=== PATIENT | female | born 1960 | race Caucasian/White ===

== ENCOUNTER 2020-12-20 08:19 | Outpatient (CLI) | payer BC, SELFPAY ==
--- NOTE | ~2020-12-20 | MM_ITS ---
EXAMINATION: MM screening howie BI w karen HISTORY: Screening TECHNIQUE: Craniocaudal and mediolateral oblique 3-D tomosynthesis images were obtained and synthetic 2-D images were generated. CAD analysis was submitted and interpreted. COMPARISON: 04/27/2011 BREAST PARENCHYMAL COMPOSITION: There are scattered areas of fibroglandular density. FINDINGS: There is no evidence of suspicious mass, calcification, or architectural distortion to sugg est malignancy in either breast. There has been no suspicious interval change. IMPRESSION: 1. No mammographic evidence of malignancy. 2. Recommend routine screening mammography in one year. BI-RADS Category 1: Negative Reviewed, dictated and finalized at location A.
== END 2020-12-20 08:20 | disposition home or self-care (01) ==
PROVIDERS: PCP Internal Medicine; Visit Provider Internal Medicine
DX: Z12.31 Encounter for screening mammogram for malignant neoplasm of breast (principal)
CPT/HCPCS: 77063; 77067

== ENCOUNTER 2023-11-09 08:50 | Outpatient (CLI) | payer BC, SELFPAY ==
--- NOTE | ~2023-11-09 | MM_ITS ---
EXAMINATION: MM screening howie BI w karen HISTORY: Screening mammogram TECHNIQUE: Craniocaudal and mediolateral oblique 3-D tomosynthesis images were obtained and synthetic 2-D images were generated. CAD analysis was submitted and interpreted. COMPARISON: 12/20/2020 BREAST PARENCHYMAL COMPOSITION:Not Dense. The breasts are almost entirely fatty FINDINGS: There is more conspicuous low-density probable circumscribed inner left subareolar mass, mo st likely of benign lymph node. Stable lymph node of the upper, outer left breast. No other suspiciou s mass, calcification, or architectural distortion are identified in either breast to suggest maligna ncy. IMPRESSION: More conspicuous mass at the inner left subareolar region. Although likely a lymph node, spot compre ssion views, and possibly ultrasound, recommended to better assess. BI-RADS Category 0: Incomplete: Needs additional imaging evaluation. Reviewed, dictated and finalized at [facility]. IMPRESSION: More conspicuous mass at the inner left subareolar region. Although likely a l ymph node, spot compression views, and possibly ultrasound, recommended to bett er assess. BI-RADS Category 0: Incomplete: Needs additional imaging evaluation.
== END 2023-11-09 08:51 | disposition home or self-care (01) ==
LOC: ANHIMG 08:54
PROVIDERS: PCP Family Medicine; Visit Provider Family Medicine
DX: Z12.31 Encounter for screening mammogram for malignant neoplasm of breast (principal); R92.8 Other abnormal and inconclusive findings on diagnostic imaging of breast
CPT/HCPCS: 77063; 77067

== ENCOUNTER 2023-12-14 10:55 | Outpatient (CLI) | payer BC, SELFPAY ==
--- NOTE | ~2023-12-14 | MMUS_ITS ---
EXAMINATION: MM diagnostic howie LT w karen, US breast LT limited HISTORY: Follow-up left breast mass TECHNIQUE: Additional 3-D tomosynthesis images of the left breast were performed and synthetic 2-D im ages were generated. CAD analysis was submitted and interpreted. High resolution Limited left breast ultrasound was performed. COMPARISON: Comparison to multiple prior studies sequentially, with oldest reviewed study dated 11/2020. BREAST PARENCHYMAL COMPOSITION: Not dense: There are scattered areas of fibroglandular density. FINDINGS: MAMMOGRAPHIC FINDINGS: There is a radiolucent mass with microlobulated margins anteriorly in the left breast at approximatel y 9:00. There are no suspicious calcifications ULTRASOUND: Limited left breast ultrasound: At 9:00, 4 cm from the nipple, there is an oval circumscribed hyperec hoic parallel oriented 5 mm mass without posterior features or internal vascularity, likely benign. T his likely does not correspond to the mammographic finding. IMPRESSION: 1. Probable benign left breast findings. 2. Recommend 6 month follow-up Limited left breast ultrasound and diagnostic left mammogram. BI-RADS category 3, probably benign findings. Reviewed, dictated and finalized at location B. IMPRESSION: 1. Probable benign left breast findings. 2. Recommend 6 month follow-up Limited left breast ultrasound and diagnostic le ft mammogram. BI-RADS category 3, probably benign findings.
== END 2023-12-14 10:56 | disposition home or self-care (01) ==
PROVIDERS: PCP Family Medicine; Visit Provider Student in an Organized Health Care Education/Training Program
DX: R92.8 Other abnormal and inconclusive findings on diagnostic imaging of breast (principal)
CPT/HCPCS: 76642; 77061; 77065; G0279

== ENCOUNTER 2024-12-10 10:20 | Outpatient (CLI) | payer BC, SELFPAY ==
--- NOTE | ~2024-12-10 | MMUS_ITS ---
EXAMINATION: MM diagnostic howie BI w karen, US breast LT limited HISTORY: Follow-up left breast mass TECHNIQUE: Additional 3-D tomosynthesis images of the breasts were performed and synthetic 2-D images were generated. CAD analysis was submitted and interpreted. High resolution Limited left breast ultr asound was performed. COMPARISON: Comparison to multiple prior studies sequentially, with oldest reviewed study dated 11/2020. BREAST PARENCHYMAL COMPOSITION: Not Dense: The breasts are almost entirely fatty. FINDINGS: MAMMOGRAPHIC FINDINGS: The right breast is stable without evidence for malignancy. Low-density mass in the lower inner quadr ant of the left breast, anterior third, is not significantly changed. No new masses, calcifications o r architectural distortion. 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 IMPRESSION: 1. Stable benign-appearing findings of the left breast. No suspicious abnormalities in either breast to suggest malignancy. 2. Routine yearly screening mammogram and regular clinical breast examination are recommended. BI-RADS Category 2: Benign finding(s). Reviewed, dictated and finalized at location B. IMPRESSION: 1. Stable benign-appearing findings of the left breast. No suspicious abnormali ties in either breast to suggest malignancy. 2. Routine yearly screening mammogram and regular clinical breast examination a re recommended. BI-RADS Category 2: Benign finding(s).
--- OUTSIDE RECORDS SUMMARY | 2024-12-10 10:49 | XMS_ITS | Clinical Summary ---
Author Organization [facility] Address [address] [place] [address] Care Team Providers Care Crane Operator Name Role Phone Zurdo York MD Primary Care Provider Allergies No known active allergies Medications coenzyme Q10 (CO Q-10) 150 mg capsule Take according to nlii-xjb-gbtcifb package directions 0 0 9 Active multivitamin tablet tablet Take according to ymvf-xfn-hnmyyxn package directions [address] (NexIUM) 40 mg capsule Take one by mouth one time per day 0 0 7 Active simvastatin (ZOCOR) 40 mg tablet TAKE 1 TABLET BY MOUTH EVERY DAY IN THE EVENING 90 0 2 Active cholecalciferol (VITAMIN D-3) 1,000 unit Take 1 tablet/capsule (1,000 Units total) by mouth daily Active bisoprolol (ZEBETA) 10 mg tablet Take 1 tablet (10 mg total) by mouth daily 2 Active phentermine 15 mg capsule Take 1 capsule (15 mg total) by mouth every morning 90 capsule 1 4 Active Additional Information Patient not taking.Reported on 09/18/2024 tirzepatide (Mounjaro) 2.5 mg/0.5 mL pen injector injectionIndica tions:type 2 diabetes mellitus Inject 0.5 mL (2.5 mg total) under the skin every 7 days 2 mL 5 Active tirzepatide (Mounjaro) 5 mg/0.5 mL pen injector injectionIndica tions:type 2 diabetes mellitus Inject 0.5 mL (5 mg total) under the skin every 7 days 6 mL 3 5 10/17/19 26 Active metFORMIN XR (GLUCOPHAGE XR) 500 mg 24 hr tabletIndicatio ns:Type 2 diabetes mellitus with hyperglycemia, without long-term current use of insulin (HCC) Take 1 tablet (500 mg total) by mouth 2 (two) times a day before breakfast and dinner 180 tablet 3 5 09/19/19 26 Active Active Problems Problem Noted Date Diagnosed Date Type 2 diabetes mellitus wit h hyperglycemia, without long-term current use of insulin 09/18/2024 Assessment & Plan (09/18/2024 1:56 PM CDT): Chronic problem. A1c near goal but increased from 6.7% to now 7.3%. -Will increase the Metformin XR from daily to twice daily -Will start mounjaro 2.5mg weekly x 4 weeks then increase to 5mg weekly. Current medications: Metformin XR 500mg twice daily with meals Mounjaro 2.5mg weekly x 4 weeks then increase to 5mg weekly. Phentermine 15mg daily UTD on labs. DM eye exam due. Will call to schedule. Discussed with Roxie Morales: Strive for regular exercise (30min most days) and diet (get at least 4-5 servings of fruit and veggies daily, avoid processed foods, increase lean protein intake and decrease carb portions as well as fruit juices, regular soda & desserts). Watch carbs and simple sugars. Check the feet daily for skin breakdown and infection. Class 2 obesity due to exces s calories without serious comorbidity with body mass index (BMI) of 37.0 to 37.9 in adult 12/30/2022 Assessment & Plan (11/03/2023 1:37 PM CDT): Diet, exercise Continue Phentermine Assessment & Plan (04/28/2023 1:37 PM AUTO ENGINE MECHANIC): Diet and exercise Continue Phentermine Assessment & Plan (12/30/2022 9:55 AM CDT): Chronic problem. Currently taking phentermine 15mg daily. Denies any SE. Has lost 5# since MICKY. Discussed diet/activity. Discussed healthy diet and importance of regular physical activity (20- 30min/day, 150min/wk). Vitamin D deficiency 02/16/2018 Assessment & Plan (09/18/2024 1:28 PM CDT): Chronic problem. Currently taking D3 1000IU daily. Last D level=47 08/29/24 No changes at this time. Assessment & Plan (11/03/2023 1:38 PM CDT): Chronic, stable Update 25 OH vit D Assessment & Plan (12/30/2022 9:54 AM CDT): Chronic problem. Currently taking D3 1000IU daily. Reports being outside in sun during day working/playing with grandchildren. Last D level=62 08/2022. No changes at this time. Assessment & Plan (08/26/2022 12:49 PM CDT): Continue current dose of vit D Assessment & Plan (06/14/2019 1:57 PM AUTO ENGINE MECHANIC): Continue vit D supplementation Assessment & Plan (02/16/2018 1:20 PM CDT): Check 25 OH vit D Adjust dose of Ergocalciferol /vit D accordingly Postmenopausal 07/21/2017 Assessment & Plan (07/21/2017 1:12 PM AUTO ENGINE MECHANIC): Calcium and vit D intake discussed DEXA Insulin resistance 07/03/2013 Overview (08/18/2016): DYSMETABOLIC SYNDROME X Assessment & Plan (11/03/2023 1:36 PM CDT): Diet and exercise Continue Metformin Update hba1c Consider starting GLP1 Assessment & Plan (04/28/2023 1:36 PM AUTO ENGINE MECHANIC): Continue working on diet and exercise Continue Metformin Assessment & Plan (12/30/2022 9:52 AM CDT): Chronic problem. A1c 5.8% when checked 08/2022; will repeat at next appt. Denies SE from Metformin. Discussed need to increase exercise/activity. Watch carb/sugar intake. Assessment & Plan (08/26/2022 12:48 PM CDT): 30 min daily walks Low calorid low carb diet discussed Start Metformin XR 500 mg daily Pt to notify me of significant SE Assessment & Plan (02/25/2022 4:14 PM CDT): Check hba1c Diet and exercise Try Ozempic Assessment & Plan (12/13/2019 1:37 PM CDT): Diet and exercise Check hba1c Assessment & Plan (08/24/2018 12:59 PM CDT): Diet and exercise Check hba1c Assessment & Plan (07/21/2017 1:11 PM AUTO ENGINE MECHANIC): Diet and exercise discussed Check hba1c Consider Metformin Assessment & Plan (01/06/2017 12:41 PM CDT): Importance of diet and exercise as cornerstone of treatment of this condition was discussed at length 45-60 min daily aerobic / resistance exercise [id number] [place]incoln diet Check hba1c Restart Metformin Lymphocytic thyroiditis 07/03/2013 Overview (08/20/2016): CHR LYMPHOCYT THYROIDIT Assessment & Plan (09/18/2024 1:28 PM CDT): Chronic problem. Last TFTs WNL when checked 08/29/24. Assessment & Plan (11/03/2023 1:36 PM CDT): Chronic, stable Euthyroid Assessment & Plan (04/28/2023 1:36 PM AUTO ENGINE MECHANIC): Continue monitoring TFTs yearly Assessment & Plan (12/30/2022 9:53 AM CDT): Chronic problem. Last TFTs WNL when checked 08/2022. Will repeat at next appt. Reviewed red flags to watch for. Assessment & Plan (02/25/2022 4:14 PM CDT): Check TFT Treat if TSH is off Assessment & Plan (06/12/2020 3:04 PM AUTO ENGINE MECHANIC): TSH has continued to be stable No indication for treatment at this point Assessment & Plan (12/13/2019 1:37 PM CDT): Check TFT's Treat if indicated Assessment & Plan (11/30/2018 2:53 PM CDT): Normal TSH Continue monitoring yearly Assessment & Plan (08/24/2018 12:59 PM CDT): Continue monitoring TSH Assessment & Plan (02/16/2018 1:18 PM CDT): Check TFT's Start Tapazole as indicated Assessment & Plan (07/21/2017 1:13 PM AUTO ENGINE MECHANIC): With subclinical hyperthyroidism Recheck TFT's Start treatment if T4//T3 are elevated Bone effects of subclinical hyperthyroidism explained DEXA requested Ca and vit D intake also discussed Assessment & Plan (01/06/2017 12:42 PM CDT): Check TFT's Restart Tapazole as indicated. Hyperlipidemia 04/18/2012 Overview (08/20/2016): HYPERLIPIDEMIA NEC/NOS Assessment & Plan (12/13/2019 1:38 PM CDT): Check lipid Adjust dose of Pravachol as indicated Low chol diet Exercise Assessment & Plan (01/06/2017 12:41 PM CDT): Goal of treatment , LDL cholesterol less than 100 ( less than 70 in patients with history of heart attacks and / or strokes ) NonHDL cholesterol goal less than 130 ( less than 100 in patients with history of heart attacks and / or strokes ) Continue statin therapy Non-toxic multinodular goiter 10/20/2010 Overview (08/20/2016): NONTOX MULTINODUL GOITER Resolved Problems Problem Noted Date Diagnosed Date Resolved Date BMI 40.0-44.9, adult 02/16/2018 023 Assessment & Plan (06/14/2019 1:57 PM AUTO ENGINE MECHANIC): Diet and exercise were discussed. 1200 Calorie diet advised 45-60 min aerobic / resistance exercise most days of the week recommended. Continue Phentermine Assessment & Plan (02/16/2018 1:19 PM CDT): Diet and exercise were discussed. 1200 Calorie diet advised 45-60 min aerobic / resistance exercise most days of the week recommended. Bariatric surgery medically indicated, pt not interested. Morbid obesity 02/16/2018 12/30/2022 Assessment & Plan (08/26/2022 12:49 PM CDT): Diet and exercise Start Phentermine Assessment & Plan (06/12/2020 3:05 PM AUTO ENGINE MECHANIC): Patient to continue working on diet and exercise Could not been tolerant to weight loss medication Assessment & Plan (11/30/2018 2:55 PM CDT): Continue Phentermine Diet and exercise were emphasized Assessment & Plan (08/24/2018 1:00 PM CDT): Diet and exercise were discussed. 1200 Calorie diet advised 45-60 min aerobic / resistance exercise most days of the week recommended. Bariatric surgery medically indicated, pt declines Start Phentermine Encounters Date Type Department Care Team Description 09/20/2024 Telephone [facility] Diabetes and Endocrinology [address] [place] [phone] Sherry Vega NP Prior Auth (Handy) 09/18/2024 1:30 PM CDT Office Visit [facility] Diabetes and Endocrinology [address] [place] [phone] Sherry Vega, FLACA Type 2 diabetes mellitus with hyperglycemia, without long-term current use of insulin (HCC) (Primary Dx); Lymphocytic thyroiditis; Vitamin D deficiency 09/18/2024 Orders Only [facility] Diabetes [facility] Endocr[facility]ology [address] [place] [phone] Provider, MD Bebe from Last 3 Months Surgical History Surgery Date Site/Laterality Comments HERNIA REPAIR Hernia repair HYSTERECTOMY Hysterectomy Medical History Medical History Date Comments Disorder of thyroid Thyroid dise ase Hx Other Medical not claustaphoi c; Comments: PINA 11/13/2013 - Family History Medical History Relation Name Comments Diabetes type II Other Family hist ory of Diabetes -Type 2; Relation Name Status Comments Other Social History Tobacco Use Types Packs/Day Years Used Date Smoking Tobacco: Former Alcohol Use Standard Drinks/Week Comments Yes 0 (1 standard drink = 0.6 oz pur e alcohol) PHQ-2 Answer Date Recorded PHQ-2 Total Score (If total score is 3 or more points, staff should administer the PHQ-9) 0 04/28/2023 Comments Unknown Sex and Gender Information Value Date Recorded Sex Assigned at Not on file Legal Sex Female 10:10 AM AUTO ENGINE MECHANIC Gender Identity Not on file Sexual Orientation Not on file Obstetrics History Last Filed Vital Signs Vital Sign Reading Time Taken Comments Blood Pressure 132/78 09/18/2024 1:07 PM CDT Pulse 80 09/18/2024 1:07 PM CDT Temperature - - Respiratory Rate 18 09/18/2024 1:07 PM CDT Oxygen Saturation - - Inhaled Oxygen Concentration - - Weight 112 kg (247 lb) 09/18/2024 1:07 PM CDT Height 152.4 cm (5') 09/18/2024 1:07 PM CDT Body Mass Index 48.24 09/18/2024 1:07 PM CDT Plan of Treatment Health Maintenance Due Date Last Done Comments Breast Cancer Screening-Mammogram 1960 Colon Cancer Screening-Colonoscopy 1960 Hepatitis C Screening 1960 Dilated Eye Exam 1960 Hepatitis B Screening 1978 Regular Well Visit/Exam 18-64 1978 Pneumococcal vaccine <65 (1 of 2 - PCV) 1979 Zoster Vaccine (1 of 2) 1979 Depression Screening 04/28/2024 04/28/2023, 08/26/2022, 02/25/2022, Additional history exists Influenza Vaccine (#1) 2025 , 2019, 03/14/2018, Additional history exists Hemoglobin A1C 03/21/2025 09/18/2024, 08/14, 11/09/2023, Additional history exists Albumin Creatinine Ratio, Urine 08/29/2025 Lipid Panel 08/29/2025 08/29/2024, 08/14, 09/07/2023, Additional history exists eGFR 08/29/2025 08/29/2024 Foot Exam 09/18/2025 09/18/2024 DTaP/Tdap/Td Vaccine (2 - Td or Tdap) 12/27/2033 12/28/2023, 1960 Procedures Procedure Name Priority Date/Time Associated Diagnosis Comments POCT GLUCOSE Routine 09/18/2024 1:10 PM CDT Type 2 diabetes mellitus with hyperglycemia, without long-term current use of insulin (HCC) POCT HEMOGLOBIN A1C Routine 09/18/2024 1 :07 PM CDT Type 2 diabetes mellitus with hyperglycemia, without long-term current use of insulin (HCC) COMPREHENSIVE METABOLIC PANEL Routine 08/29/2024 9:11 AM CDT LIPID PANEL Routine 08/29/2024 9:11 AM CDT ALBUMIN CREATININE RATIO, URINE Routine 08/29/2024 9:11 AM CDT from Last 3 Months or Most Recently Relevant to Health Maintenance Results * (ABNORMAL) POCT glucose (09/18/2024 1:10 PM CDT) Glucose Blood, POC 131 Normal Fasting 70 - 100, Random <200 mg/dL Blood 09/18/2024 1:10 PM CDT us Sherry Vega MARINE DIESEL MECHANIC POINT OF CARE TEST ORDERA BLES Final Result * (ABNORMAL) POCT hemoglobin A1c (09/18/2024 1:07 PM CDT) Pathologist [facility] Hemoglobin A1C, POC 7.3(A) 4.0 - 5.6 % Blood 09/18/2024 1:07 PM CDT Sherry Vega MARINE DIESEL MECHANIC POINT OF CARE TEST ORDERA BLES Final Result * Albumin Creatinine Ratio, Urine (08/29/2024 9:11 AM CDT) Pathologist [facility] SCRIBED Creatinine, Urine 72 20 - 275 [facility] SCRIBED Microalbumin 0.2 NA - NA [facility] SCRIBED Microalb/Creat Ratio 3 <30 - NA [facility] Urine 08/29/2024 9:11 AM CDT Historical Provider MD LAB URINE ORDERABLES Edit ed Result - Final Performing Organization Address City/[facility]/ZIP Co de Phone Number [facility] * (ABNORMAL) Lipid panel (08/29/2024 9:11 AM CDT) Pathologist [facility] SCRIBED Cholesterol, Total 159 30 - 199 mg/dL [facility] SCR[facility] Triglycerides 276(A) <=149 mg/dL [facility] SCRIBED HDL 43 >=40 mg/dL [facility] SCRIBED LDL 80 <=129 mg/dL [facility] Scribed Non-HDL Cholesterol 116 NONE mg/dL [facility] SCRIBED Total Cholesterol/HDL Ratio 159 NONE [facility] Blood 08/29/2024 9:11 AM CDT Historical Provider MD LAB BLOOD ORDERABLES Edit ed Result - Final [facility] * (ABNORMAL) Comprehensive metabolic panel (08/29/2024 9:11 AM CDT) Pathologist [facility] SCRIBED Sodium 139 135 - 146 mmol/L [facility] S[facility] Potassium 4.2 3.5 - 5.3 mmol/L [facility] S[facility] Chloride 101 98 - 110 mmol/L [facility] SCR[facility] Carbon Dioxide 31 20 - 32 mmol/L [facility] SCR[facility] Urea Nitrogen (BUN) 9 7 - 25 mg/dl [facility] Creatinine 0.66 0.50 - 1.05 mg/dl [facility] S[facility] Glucose 132(A) 65 - 99 mg/dl [facility] SCR[facility] Calcium 9.3 8.6 - 10.4 mg/dl [facility] S[facility] Bilirubin 0.6 0.2 - 1.2 mg/dl [facility] S[facility] Plasma Protein 6.3 6.1 - 8.1 g/dl [facility] S[facility] Albumin 4 3.6 - 5.1 g/dl [facility] SCR[facility] Alkaline Phosphatase 59 37 - 153 Units/L [facility] SCR[facility] Alanine Transaminase (ALT) 48(A) 6 - 29 Units/L [facility] SCR[facility] Aspartate Transaminase (AST) 35 10 - 35 Units/L [facility] SCRIBED eGFR in NonAfrican Jordanian 98 >=60 - NA [facility] Blood 08/29/2024 9:11 AM CDT us Historical Provider LAB BLOOD ORDERABLES Edit ed Result - Final [facility] from Last 3 Months or Most Recently Relevant to Health Maintenance Insurance [employer] [facility] Care Teams Crane Operator Relationship Specialty [place] [address] [place], [place] [phone] PCP - General 08/13/16
--- OUTSIDE RECORDS SUMMARY | 2024-12-10 10:49 | XMS_ITS | Referral Summary ---
Author Organization [address] Address [address] [place] [phone] Care Team Providers Care Cross Roller Name Role Phone Zurdo York MD Primary Care Provider Encounters Date Type Department Care Team Description 09/20/2024 Telephone [facility] Diabetes and Endocrinology [address] [place] [phone] Sherry Vega NP Prior Auth (Mounjaro) 09/18/2024 Orders Only [facility] Diabetes and Endocrinology [address] [place] [phone] ProviderBebe MD 09/18/2024 1:30 PM CDT Office Visit [facility] Diabetes and Endocrinology [address] [place] [phone] Sherry Vega NP Type 2 diabetes mellitus with hyperglycemia, without long-term current use of insulin (HCC) (Primary Dx); Lymphocytic thyroiditis; Vitamin D deficiency from Last 3 Months Allergies No known active allergies Medications coenzyme Q10 (CO Q-10) 150 mg capsule Take according to bbrn-gak-vzdwodb package directions 0 0 9 Active multivitamin tablet tablet Take according to irhv-piw-ljsrejz package directions 0 0 7 Active esomeprazole [...] Phentermine Assessment & Plan (04/28/2023 1:37 PM MACHINE QUILT STUFFER): Diet and exercise Continue Phentermine Assessment & [...] D Assessment & Plan (06/14/2019 1:57 PM MACHINE QUILT STUFFER): Continue vit D supplementation Assessment & Plan (02/16/2018 1:20 PM CDT): Check 25 OH vit D Adjust dose of Ergocalciferol /vit D accordingly Postmenopausal 07/21/2017 Assessment & Plan (07/21/2017 1:12 PM MACHINE QUILT STUFFER): Calcium and vit D intake discussed DEXA Insulin resistance 07/03/2013 Overview (08/18/2016): DYSMETABOLIC SYNDROME X Assessment & Plan (11/03/2023 1:36 PM CDT): Diet and exercise Continue Metformin Update hba1c Consider starting GLP1 Assessment & Plan (04/28/2023 1:36 PM MACHINE QUILT STUFFER): Continue working on diet and exercise Continue [...] hba1c Assessment & Plan (07/21/2017 1:11 PM MACHINE QUILT STUFFER): Diet and exercise discussed Check hba1c Consider Metformin Assessment & Plan (01/06/2017 12:41 PM CDT): Importance of diet and exercise as cornerstone of treatment of this condition was discussed at length 45-60 min daily aerobic / resistance exercise [id number] [place]incoln diet Check hba1c Restart Metformin Lymphocytic thyroiditis 07/03/2013 Overview (08/20/2016): CHR LYMPHOCYT THYROIDIT Assessment & Plan (09/18/2024 1:28 PM CDT): Chronic problem. Last TFTs WNL when checked 08/29/24. Assessment & Plan (11/03/2023 1:36 PM CDT): Chronic, stable Euthyroid Assessment & Plan (04/28/2023 1:36 PM MACHINE QUILT STUFFER): Continue monitoring TFTs yearly Assessment & Plan (12/30/2022 9:53 AM CDT): Chronic problem. Last TFTs WNL when checked 08/2022. Will repeat at next appt. Reviewed red flags to watch for. Assessment & Plan (02/25/2022 4:14 PM CDT): Check TFT Treat if TSH is off Assessment & Plan (06/12/2020 3:04 PM MACHINE QUILT STUFFER): TSH has continued to be stable No [...] indicated Assessment & Plan (07/21/2017 1:13 PM MACHINE QUILT STUFFER): With subclinical hyperthyroidism Recheck TFT's Start treatment [...] 023 Assessment & Plan (06/14/2019 1:57 PM MACHINE QUILT STUFFER): Diet and exercise were discussed. 1200 Calorie [...] Phentermine Assessment & Plan (06/12/2020 3:05 PM MACHINE QUILT STUFFER): Patient to continue working on diet and [...] surgery medically indicated, pt declines Start Phentermine Social History Tobacco Use Types Packs/Day Years [...] on file Legal Sex Female 10:10 AM MACHINE QUILT STUFFER Gender Identity Not on file Sexual Orientation Not on file Last Filed Vital Signs Vital Sign Reading [...] 09/18/2024 1:07 PM CDT Plan of Treatment Not on file Procedures Procedure Name Priority Date/Time Associated Diagnosis [...] (ABNORMAL) POCT glucose (09/18/2024 1:10 PM CDT) Pathologist [facility] Glucose Blood, POC 131 Normal Fasting 70 - 100, Random <200 mg/dL Blood 09/18/2024 1:10 PM CDT Sherry Vega NP POINT OF CARE TEST ORDERA BLES Final Result * (ABNORMAL) POCT hemoglobin A1c (09/18/2024 1:07 PM CDT) Pathologist [facility] Hemoglobin A1C, POC 7.3(A) 4.0 - 5.6 % Blood 09/18/2024 1:07 PM CDT Sherry Vega NP POINT OF CARE TEST ORDERA BLES Final Result * Albumin Creatinine Ratio, Urine (08/29/2024 9:11 AM CDT) Pathologist [facility] SCRIBED Creatinine, Urine 72 20 - 275 [facility] SCRIB[facility] Microalbumin 0.2 NA - NA [facility] SCRIBED Microalb/Creat Ratio 3 <30 - NA [facility] Urine 08/29/2024 9:11 AM CDT Historical Provider LAB URINE ORDERABLES Edit ed Result - Final [facility] * (ABNORMAL) Lipid panel (08/29/2024 9:11 AM CDT) Pathologist [facility] SCRIBED Cholesterol, Total 159 30 - 199 mg/dL [facility] SCR[facility] Triglycerides 276(A) <=149 mg/dL [facility] SCRIBED HDL 43 >=40 mg/dL [facility] SCRIB[facility] LDL 80 <=129 mg/dL [facility] Scribed Non-HDL Cholesterol 116 NONE mg/dL [facility] SCRIBED Total Cholesterol/HDL Ratio 159 NONE [facility] Blood 08/29/2024 9:11 AM CDT Historical Provider LAB BLOOD ORDERABLES Edit ed Result - Final [facility] * (ABNORMAL) Comprehensive metabolic panel (08/29/2024 9:11 AM CDT) SCRIBED Sodium 139 135 - 146 mmol/L [...] 35 Units/L [facility] SCRIBED eGFR in NonAfrican Swazi 98 >=60 - NA [facility] Blood 08/29/2024 9:11 AM CDT us Historical Provider LAB BLOOD ORDERABLES Edit ed Result - Final [facility] from Last 3 Months or Most Recently Relevant to Health Maintenance Insurance [facility] [place] Care Teams Cross Roller Relationship Specialty [place] [address] [place] [address] PCP - General 08/13/16
== END 2024-12-10 10:21 | disposition home or self-care (01) ==
PROVIDERS: PCP Family Medicine; Visit Provider Family Medicine
DX: N63.20 Unspecified lump in the left breast, unspecified quadrant (principal); R92.8 Other abnormal and inconclusive findings on diagnostic imaging of breast; Z12.31 Encounter for screening mammogram for malignant neoplasm of breast
CPT/HCPCS: 76642; 77062; 77066; G0279